=== PATIENT | male | born 1985 | race Caucasian/White ===

== ENCOUNTER 2024-11-30 12:50 | Outpatient (CLI) | payer BC, SELFPAY ==
--- OUTSIDE RECORDS SUMMARY | 2024-11-30 14:06 | XMS_ITS | Clinical Summary ---
Author Organization [facility] Address [address] [place] [address] Care Team Providers Care Agriculture Research Director Name Role Phone Angel Kerr CERTIFIED [employer]OVE[employer] ENGINE[employer] Primary Care Provider [phone] OPT 4 Kirk Iverson MD Unavailable Source Comments [facility],non-owned Affiliates and Associated Physician Practices is amultiple site organization consisting of ambulatory clinics and hospital sitesin [place], [place], [place] and [place]. This disclosure is being madepursuant to the Care Everywhere program and may not contain all information available regarding this patient. Last updated 18.[facility] Allergies Active Allergy Reactions Criticality Noted Date Comments Penicillins 09/25/2017 Sulfa Drugs 10/14/2017 Medications * Be aware that medications may not be up to date on this document. Alwaysverify current medications with the patient. Medication Sig Dispensed Refills Start Date End Date Status dexlansoprazole (DEXILANT) 60 MG capsule Take 60 mg by mouth once daily Active omeprazole (PRILOSEC) 40 MG capsule Take 40 mg by mouth daily before breakfast Active hyoscyamine 0.125 MG tablet Take 1 tablet by mouth every 4 hours as needed for Spasms 20 tablet 06/27/2018 Active Additional Information Patient not taking.Reported on 01/15/2022 venlafaxine XR 24hr (EFFEXOR XR) 150 MG capsule TAKE 1 CAPSULE WITH FOOD BY MOUTH ONCE A DAY 90 DAYS 01/12/2022 Active vitamin D, ergocalciferol, (DRISDOL) 1.25 MG (98410 UT) capsule 1 CAPSULE 1 WEEKLY ORALLY 90 DAY(S) 01/04/2022 Active pantoprazole EC (PROTONIX) 40 MG tablet TAKE 1 TABLET BY MOUTH TWICE A DAY FOR 30 DAYS 01/08/2022 Active atorvastatin (LIPITOR) 10 MG tablet TAKE 1 TABLET BY MOUTH EVERY DAY FOR 90 DAYS 11/25/2021 Active nebivolol (BYSTOLIC) 10 MG tablet TAKE 1 TABLET BY MOUTH EVERY DAY FOR 90 DAYS 11/20/2021 Active Multi Complete Take 1 capsule by mouth once daily Active azithromycin (Zithromax) 250 MG tablet Take 2 tablets on day 1, then take 1 tablet daily for 4 days 6 tablet 05/21/2023 Active Active Problems No known active problems Family History Relation Name Status Comments Brother Alive Father Alive Maternal Grandfather Maternal Grandmother Mother Alive Paternal Grandfather Paternal Grandmother Sister Alive Social History Tobacco Use Types Packs/Day Years Used Date Smoking Tobacco: Never Smokeless Tobacco: Never Tobacco Cessation:Counseling Given: No Alcohol Use Standard Drinks/Week Comments No 0 (1 standard drink = 0.6 oz pur e alcohol) Sex and Gender Information Value Date Recorded Sex Assigned at Not on file Gender Identity Not on file Sexual Orientation Not on file Last Filed Vital Signs Vital Sign Reading Time Taken Comments Blood Pressure 145/89 01/15/2022 2:53 PM CDT Pulse 96 01/15/2022 2:53 PM CDT Temperature 36.4 C (97.5 F) 01/15/2022 2:53 PM CDT Respiratory Rate 18 01/15/2022 2:53 PM CDT Oxygen Saturation 98% 01/15/2022 2:53 PM CDT Inhaled Oxygen Concentration - - Weight 152.8 kg (336 lb 12.8 oz) 01/15/2022 2:53 PM CDT Height 177.8 cm (5' 10 ) 01/15/2022 2:53 PM CDT Body Mass Index 48.33 01/15/2022 2:53 PM CDT Plan of Treatment Health Maintenance Due Date Last Done Comments HIV SCREENING 2002 HEPATITIS C SCREENING 07/12/2005 DTAP/TDAP/TD VACCINES (1 - Tdap) 2006 HEPATITIS B VACCINE (1 of 3 - 19+ 3-dose series) 2006 COVID-19 VACCINE ( - 2023-2 5 season) 2024 INFLUENZA VACCINE (#1) 2024 DEPRESSION SCREENING 09/27/2024 ZOSTER VACCINE (1 of 2) 2037 HIB VACCINE Aged Out No longer eligi ble based on patient's age to complete this topic HPV VACCINE Aged Out No longer eligi ble based on patient's age to complete this topic MENINGOCOCCAL (Group B) VACCINE Aged Out No longer eligible based on patient's age to complete this topic MENINGOCOCCAL VACCINE Aged Out No ifeoma brittany eligible based on patient's age to complete this topic PNEUMOCOCCAL VACCINE Aged Out No long er eligible based on patient's age to complete this topic Care Teams Agriculture Research Director Relationship Specialty Start Date End Date Angel Kerr, CERTIFIED [employer] ENGINE[employer]ER [phone] OPT 4 (Work) PCP - General Nurse Practitioner Family 02/13/21 Kirk Iverson MD [address] [place] [address] [place] [id number] Family Medicine 02/13/21
--- OUTSIDE RECORDS SUMMARY | 2024-11-30 14:06 | XMS_ITS | Patient Health Summary ---
Author Organization [facility] Address [address] [place] [address] Care Team Providers Care Chip Person Name Role Phone Angel Kerr HEEL SLUGGER-INSEMINATION WORKER Primary Care Provider [phone] OPT 4 Kirk Iverson MD Unavailable Note from [facility],non-owned Affiliates and Associated Physician Practices is amultiple site organization consisting of ambulatory clinics and hospital sitesin [place], [place] and [place]. This disclosure is being madepursuant to the Care Everywhere program and may not contain all information available regarding this patient. Last updated 18.[facility] Allergies * Penicillins * Sulfa Drugs Medications * Be aware that medications may not be up to date on this document. Alwaysverify current medications with the patient. * dexlansoprazole (DEXILANT) 60 MG capsule Take 60 mg by mouth once daily * omeprazole (PRILOSEC) 40 MG capsule Take 40 mg by mouth daily before breakfast * hyoscyamine 0.125 MG tablet(Started 06/27/2018) Take 1 tablet by mouth every 4 hours as needed for Spasms * venlafaxine XR 24hr (EFFEXOR XR) 150 MG capsule(Started 01/12/2022) TAKE 1 CAPSULE WITH FOOD BY MOUTH ONCE A DAY 90 DAYS * vitamin D, ergocalciferol, (DRISDOL) 1.25 MG (08995 UT) capsule(Started 01/04/2022) 1 CAPSULE 1 WEEKLY ORALLY 90 DAY(S) * pantoprazole EC (PROTONIX) 40 MG tablet(Started 01/08/2022) TAKE 1 TABLET BY MOUTH TWICE A DAY FOR 30 DAYS * atorvastatin (LIPITOR) 10 MG tablet(Started 11/25/2021) TAKE 1 TABLET BY MOUTH EVERY DAY FOR 90 DAYS * nebivolol (BYSTOLIC) 10 MG tablet(Started 11/20/2021) TAKE 1 TABLET BY MOUTH EVERY DAY FOR 90 DAYS * Multi Complete Take 1 capsule by mouth once daily * azithromycin (Zithromax) 250 MG tablet(Started 05/21/2023) Take 2 tablets on day 1, then take 1 tablet daily for 4 days Active Problems No known active problems Social History Tobacco Use Types Packs/Day Years [...] Mass Index 48.33 01/15/2022 2:53 PM CDT Procedures * LIPID PROFILE(Performed 05/12/2024) Performed for Male erectile disorder, Testosterone deficiency, Vitamin D deficiency, Hypertension, unspecified type * CBC W AUTO DIFFERENTIAL(Performed 05/12/2024) Performed for Male erectile disorder, Testosterone deficiency, Vitamin D deficiency, Hypertension, unspecified type * COMPREHENSIVE METABOLIC PANEL(Performed 05/12/2024) Performed for Male erectile disorder, Testosterone deficiency, Vitamin D deficiency, Hypertension, unspecified type * ESTRADIOL ULTRA SENSITIVE(Performed 05/12/2024) Performed for Male erectile disorder, Testosterone deficiency, Vitamin D deficiency, Hypertension, unspecified type * TESTOSTERONE FREE+TOT MALE PANEL(Performed 05/12/2024) Performed for Male erectile disorder, Testosterone deficiency, Vitamin D deficiency, Hypertension, unspecified type * VITAMIN D 25-HYDROXY(Performed 05/12/2024) Performed for Male erectile disorder, Testosterone deficiency, Vitamin D deficiency, Hypertension, unspecified type * T4 FREE(Performed 05/12/2024) Performed for Male erectile disorder, Testosterone deficiency, Vitamin D deficiency, Hypertension, unspecified type * T3 FREE(Performed 05/12/2024) Performed for Male erectile disorder, Testosterone deficiency, Vitamin D deficiency, Hypertension, unspecified type * TSH(Performed 05/12/2024) Performed for Male erectile disorder, Testosterone deficiency, Vitamin D deficiency, Hypertension, unspecified type * URINALYSIS REFLEX MICROSCOPIC REFLEX CULTURE(Performed 05/12/2024) Performed for Male erectile disorder, Testosterone deficiency, Vitamin D deficiency, Hypertension, unspecified type * MICROALB/CREAT RATIO URINE RANDOM PANEL(Performed 05/12/2024) Performed for Male erectile disorder, Testosterone deficiency, Vitamin D deficiency, Hypertension, unspecified type * PFT-LAB(Performed 06/25/2022) Performed for Dyspnea, unspecified type * HOME SLEEP STUDY(Performed 05/13/2022) Performed for Snoring * COMPREHENSIVE METABOLIC PANEL(Performed 09/10/2021) Performed for Dyspnea on exertion * LIPASE BLOOD(Performed 09/10/2021) Performed for Dyspnea on exertion * CBC W AUTO DIFFERENTIAL(Performed 09/10/2021) Performed for Dyspnea on exertion * AMYLASE BLOOD(Performed 09/10/2021) Performed for Dyspnea on exertion * TROPONIN I(Performed 09/10/2021) Performed for Dyspnea on exertion * TESTOSTERONE TOTAL MALE(Performed 08/06/2021) Performed for Erectile dysfunction, unspecified erectile dysfunction type * COMPREHENSIVE METABOLIC PANEL(Performed 07/18/2018) Performed for Elevated LFTs * TSH(Performed 06/27/2018) Performed for Diarrhea, unspecified type, Abdominal pain, generalized * CBC W AUTO DIFFERENTIAL(Performed 06/27/2018) Performed for Diarrhea, unspecified type, Abdominal pain, generalized * COMPREHENSIVE METABOLIC PANEL(Performed 06/27/2018) Performed for Diarrhea, unspecified type, Abdominal pain, generalized * URINALYSIS AUTO - POINT OF CARE (AMB) SMGS(Performed 06/27/2018) Performed for Diarrhea, unspecified type, Abdominal pain, generalized * CULTURE STOOL PANEL(Performed 06/27/2018) Performed for Diarrhea, unspecified type, Abdominal pain, generalized * SKIN TEST PPD - POINT OF CARE(Performed 06/14/2018) Performed for Health examination of defined subpopulation * CARDIAC RHYTHM STRIP ORDER(Performed 11/03/2017) * ESOPHAGOGASTRODUODENOSCOPY (EGD) DIAGNOSTIC(Performed 11/03/2017) Performed for Gastroesophageal reflux disease, esophagitis presence not specified * CARDIAC RHYTHM STRIP ORDER(Performed 10/26/2017) * ESOPHAGOGASTRODUODENOSCOPY (EGD) DIAGNOSTIC(Performed 10/15/2017) Performed for Gastroesophageal reflux disease, esophagitis presence not specified * ED LACERATION REPAIR(Performed 10/07/2017) * FL ESOPHAGUS W UGI AIR CONTRAST(Performed 06/24/2017) Performed for Gastroesophageal reflux disease, esophagitis presence not specified * XR ANKLE LEFT 3VW OR MORE(Performed 07/16/2015) Performed for Arthralgia of left ankle Results * (ABNORMAL) URINALYSIS REFLEX MICROSCOPIC REFLEX CULTURE (05/12/2024 8:01 AM [facility]) Color UA Yellow Straw, Yellow, Dark Yellow 05/12/2024 9:02 AM [facility] Clarity UA Clear Clear 05/12/2024 9:02 AM [facility] Glucose UA Negative Negative 05/12/2024 9:02 AM [facility] Bilirubin UA Negative Negative 05/12/2024 9:02 AM [facility] Ketone UA Negative Negative 05/12/2024 9:02 AM [facility] Specific [place] UA 1.025 1.005 - 1.030 05/12/2024 9:02 AM [facility] Blood UA Negative Negative 05/12/2024 9:02 AM [facility] pH UA 6.0 5.0 - 8.0 pH 05/12/2024 9:02 AM [facility] Protein UA Negative Negative 05/12/2024 9:02 AM [facility] Urobilinogen UA 4.0(A) Negative, >8.0 mg/dL 05/12/2024 9:02 AM [facility] Nitrite UA Negative Negative 05/12/2024 9:02 AM [facility] Leukocyte UA Negative Negative 05/12/2024 9:02 AM [facility] Urine Microscopy Urine microscopy not indicated 05/12/2024 9:02 AM [facility] Reflex Status Culture not indicated 05/12/2024 9:02 AM [facility] Urine URINE SPECIMEN OBTAINED BY CLEAN CATCH PROCEDURE / Unknown Collection / Unknown 05/12/2024 8:01 AM CDT 05/12/2024 8:42 AM CDT Narrative [facility] - 05/12/2024 9:02 AM CDT Angel Winston Usha [facility] - URINALYSI S ORDERABLES Performing Organization Address [facility] de Phone Number [facility] [address] * (ABNORMAL) ESTRADIOL ULTRA SENSITIVE (05/12/2024 8:01 AM CDT) [facility] Estradiol Ultrasensitive 113.9(H) 10.0 - 42.0 pg/mL 05/17/2024 4:44 PM CDT [facility] ([facility]) Comment: REFERENCE INTERVAL: Estradiol by Signals Intelligence Analysis Manager Pre-menopausal: Early follicular 30.0-100.0 pg/mL Pre-menopausal: Late follicular 100.0-400.0 pg/mL Pre-menopausal: Luteal 50.0-150.0 pg/mL Post-menopausal 2.0-21.0 pg/mL REFERENCE INTERVAL: Estradiol by Signals Intelligence Analysis Manager For a complete set of all established reference intervals, refer to [employer]/Tests/Pub/[id number]. This test was developed and its performance characteristics determined by [facility]. It has not been cleared or approved by the [place] Food and Drug Administration. This test was performed in a CLIA certified laboratory and is intended for clinical purposes. Performed By: [facility] [address] [address] Nipple Machine Operator: Janes Chahal MD, PhD CLIA Number: [id number] Blood BLOOD SPECIMEN / Unknown Lab Venipuncture / Unknown 05/12/2024 8:01 AM CDT 05/12/2024 8:42 AM CDT Angel Winston Usha [facility] - CHEMISTRY ORDERABLES [facility]) [address] [place] [address] * MICROALB/CREAT RATIO URINE RANDOM PANEL (05/12/2024 8:01 AM CDT) Creatinine Urine 286.8 mg/dL 05/12/20 9:42 AM CDT [facility] Microalbumin Urine 2.0 mg/dL 05/12/2024 9:42 AM CDT [facility] Microalbumin/Crea tinine Ratio 6 Normal: <30 mg/g, Microalbum inuria: 30-299 mg/g, Macroalbum inuria: >=300 mg/g mg/g 05/12/2024 9:42 AM CDT [facility] Urine URINE SPECIMEN OBTAINED BY CLEAN CATCH PROCEDURE / Unknown Collection / Unknown 05/12/2024 8:01 AM CDT 05/12/2024 8:41 AM CDT Angel Kerr [facility] - URINE MICHAEL MARY ORDERABLES Performing Organization Address [facility]/ZIP Co de Phone Number [facility] [address] [place] [address] * T3 FREE (05/12/2024 8:01 AM CDT) T3 Free 3.8 2.5 - 4.3 pg/mL 05/15/2024 12:18 AM CDT [facility] ([facility]) Comment: REFERENCE INTERVAL: Triiodothyronine, Free (Free T3) Access complete set of age- and/or gender-specific reference intervals for this test in the [facility] Test Directory ([employer]). Performed By: [facility] [address] [place] [address] Nipple Machine Operator: Janes Chahal MD, PhD CLIA Number: [id number] Blood BLOOD SPECIMEN / Unknown Lab Venipuncture / Unknown 05/12/2024 8:01 AM CDT 05/12/2024 8:41 AM CDT Angel Kerr [facility] - CHEMISTRY ORDERABLES Performing Organization Address [facility]/ZIP Co de Phone Number [facility]) [address] [place] [address] * VITAMIN D 25-HYDROXY (performed in house) (05/12/2024 8:01 AM CDT) Vitamin D, 25 Hydroxy 45.1 30 - 80 ng/mL 05/12/2024 9:54 AM CDT [facility] Blood BLOOD SPECIMEN / Unknown Lab Venipuncture / Unknown 05/12/2024 8:01 AM CDT 05/12/2024 8:41 AM CDT Narrative [facility] - 05/12/2024 9:54 AM CDT Reference Values: The recommendation for 25-Hydroxy Vitamin D clinical decision points are as follows: Deficient < 20.0 ng/mL Insufficient 20.0-29.9 ng/mL Sufficient 30.0-100.0 ng/mL Potential Toxicity >100 ng/mL Reference: The Endocrine Society Clinical Practice Guidelines. 2011 If the 25-Hydroxy Vitamin D results are inconsistent with clinical evidence, it is recommended that follow-up testing using a method such as LC-MS/MS be performed to confirm the result. Angel Kerr HEEL SLUGGER-INSEMINATION WORKER LAB - CHEMISTRY ORDERABLES Performing Organization Address City/State/[facility] Co de Phone Number [facility] [address] * (ABNORMAL) TESTOSTERONE FREE+TOT MALE PANEL (05/12/2024 8:01 AM CDT) Testosterone Adult Male 762 300 - 1080 ng/dL 05/15/2024 12:30 AM CDT [facility] ([facility]) Comment: INTERPRETIVE INFORMATION: Testosterone by Immunoassay Testosterone immunoassays are both imprecise and inaccurate at low testosterone concentrations, such as those found in children and cisgender females. For these individuals, testing by mass spectrometry is recommended; refer to Testosterone (Adult Females, Children, or Individuals on Testosterone-Suppressing Hormone Therapy) ([facility] test code 9733183). Free or bioavailable testosterone measurements may provide supportive information. For individuals on testosterone hormone therapy, refer to cisgender male reference intervals. No reference intervals have been established for males younger than 14 years or for cisgender females. For a complete set of all established reference intervals, refer to [employer]/Tests/Pub/[id number]. Sex Hormone Binding Globulin 7(L) 17 - 56 nmol/L 05/15/2024 12:30 AM CDT [facility] ([facility]) Comment: REFERENCE INTERVAL: Sex Hormone Binding Globulin Access complete set of age- and/or gender-specific reference intervals for this test in the [facility] Test Directory ([employer]). Testosterone Free 240 47 - 244 pg/mL 05/15/2024 12:30 AM CDT [facility] ([facility]) Comment: INTERPRETIVE INFORMATION: Testosterone, Free Calculation Free testosterone concentration is calculated using total testosterone (measured by immunoassay) and the binding constant of testosterone and sex hormone-binding globulin (SHBG). Testosterone immunoassays are both imprecise and inaccurate at low testosterone concentrations, such as those found in children and cisgender females. For these individuals, testing by mass spectrometry is recommended; refer to Testosterone, Free (Adult Females, Children, or Individuals on Testosterone-Suppressing Hormone Therapy) ([employer] test code 3351055). For individuals on testosterone hormone therapy, refer to cisgender male reference intervals. No reference intervals have been established for males younger than 14 years or for cisgender females. For a complete set of all established reference intervals, refer to [employer]/Tests/Pub/3932532. Testosterone % Free 3.2(H) 1.6 - 2.9 % 05/15/2024 12:30 AM CDT [facility] ([facility]) Comment: Performed By: [facility] [address] [place] [address] Nipple Machine Operator: Janes Chahal MD, PhD CLIA Number: [id number] Blood BLOOD SPECIMEN / Unknown Lab Venipuncture / Unknown 05/12/2024 8:01 AM CDT 05/12/2024 8:42 AM CDT Angel Kerr HEEL SLUGGER-INSEMINATION WORKER LAB - CHEMISTRY ORDERABLES [facility]) [address] * CBC W/ DIFFERENTIAL (05/12/2024 8:01 AM CDT) Only the most recent of3 resultswithin the time period is included. WBC 6.4 4.0 - 10.7 x10E9/L 05/12/2024 8:57 AM [facility] RBC Count 5.34 4.30 - 5.80 x10E12/L 05/12/2024 8:57 AM [facility] Hemoglobin 15.9 13.3 - 17.5 g/dL 05/12/2024 8:57 AM [facility] Hematocrit 47.6 38.7 - 51.1 % 05/12/2024 8:57 AM [facility] MCV 89.1 80.0 - 98.0 fL 05/12/2024 8:57 AM [facility] MCH 29.8 26.7 - 33.6 pg 05/12/2024 8:57 AM [facility] MCHC 33.4 31.7 - 36.3 g/dL 05/12/2024 8:57 AM [facility] RDW-CV 13.2 11.3 - 14.8 % 05/12/2024 8:57 AM [facility] Platelet Count 181 150 - 420 x10E9/L 05/12/2024 8:57 AM [facility] MPV 9.9 7.8 - 11.4 fL 05/12/2024 8:57 AM [facility] Neutrophil % 60.3 41.0 - 74.0 % 05/12/2024 8:57 AM [facility] Lymphocyte % 28.5 17.0 - 47.0 % 05/12/2024 8:57 AM [facility] Monocyte % 8.9 3.0 - 11.0 % 05/12/2024 8:57 AM [facility] Eosinophil % 1.6 0.0 - 7.0 % 05/12/2024 8:57 AM [facility] Basophil % 0.5 0.0 - 1.6 % 05/12/2024 8:57 AM [facility] Immature Granulocytes % 0.2 0.0 - 1.0 % 05/12/2024 8:57 AM [facility] Neutrophil Absolute 3.88 1.60 - 7.50 x10E9/L 05/12/2024 8:57 AM [facility] Lymphocyte Absolute 1.83 1.00 - 4.40 x10E9/L 05/12/2024 8:57 AM [facility] Monocyte Absolute 0.57 0.15 - 1.00 x10E9/L 05/12/2024 8:57 AM CDT [facility] Eosinophil Absolute 0.10 0.00 - 0.60 x10E9/L 05/12/2024 8:57 AM CDT [facility] Basophil Absolute 0.03 0.00 - 0.13 x10E9/L 05/12/2024 8:57 AM CDT [facility] Blood BLOOD SPECIMEN / Unknown Lab Venipuncture / Unknown 05/12/2024 8:01 AM CDT 05/12/2024 8:42 AM CDT Angel Kerr HEEL SLUGGER-INSEMINATION WORKER LAB - HEMATOLOG Y ORDERABLES Performing Organization Address City/State/[facility] Co de Phone Number [facility] [address] * (ABNORMAL) COMPREHENSIVE METABOLIC PANEL (05/12/2024 8:01 AM CDT) Only the most recent of4 resultswithin the time period is included. Glucose 95 70 - 125 mg/dL 05/12/2024 3:34 PM T [facility] Sodium 139 136 - 145 mmol/L 05/12/2024 3:34 PM T [facility] Potassium 3.9 3.4 - 5.1 mmol/L 05/12/2024 3:34 PM T [facility] Chloride 107 98 - 107 mmol/L 05/12/2024 3:34 PM T [facility] CO2 26 22 - 29 mmol/L 05/12/2024 3:34 PM [facility] Calcium 9.10 8.4 - 10.2 mg/dL 05/12/2024 3:34 PM [facility] Anion Gap 6 6 - 16 mmol/L 05/12/2024 3:34 PM T [facility] BUN 11.7 8.4 - 25.7 mg/dL 05/12/2024 3:34 PM T [facility] Creatinine 1.04 0.72 - 1.25 mg/dL 05/12/2024 3:34 PM T [facility] Alkaline Phosphatase 43 40 - 150 U/L 05/12/2024 3:34 PM T [facility] ALT 27 <=55 U/L 05/12/2024 3:34 PM CDT [facility] AST 19 5 - 34 U/L 05/12/2024 3:34 PM CDT [facility] Protein Total 6.4 6.4 - 8.3 gm/dL 05/12/2024 3:34 PM CDT [facility] Albumin 4.0 3.4 - 4.8 gm/dL 05/12/2024 3:34 PM CDT [facility] Globulin Total 2.4(L) 2.6 - 4.0 gm/dL 05/12/2024 3:34 PM CDT [facility] Albumin/Globulin Ratio 1.7(H) 0.9 - 1.6 05/12/2024 3:34 PM CDT [facility] Bilirubin Total 1.0 0.2 - 1.2 mg/dL 05/12/2024 3:34 PM CDT [facility] eGFR >90 >90 mL/min/1.7 3m2 05/12/2024 3:34 PM CDT [facility] Comment:The GFR result was c alculated using the updated CKD-EPI Creatinine Equation (2020). Blood BLOOD SPECIMEN / Unknown Lab Venipuncture / Unknown 05/12/2024 8:01 AM CDT 05/12/2024 8:42 AM CDT [facility] - CHEMISTRY ORDERABLES Performing Organization Address [facility] Co de Phone Number [facility] [address] * TSH (05/12/2024 8:01 AM CDT) Only the most recent of2 resultswithin the time period is included. TSH 1.0104 0.35 - 4.94 uIU/mL 05/12/2024 3:34 PM CDT [facility] Blood BLOOD SPECIMEN / Unknown Lab Venipuncture / Unknown 05/12/2024 8:01 AM CDT 05/12/2024 8:42 AM CDT Angel Kerr [facility] - CHEMISTRY ORDERABLES Performing Organization Address City/[facility] Co de Phone Number [facility] [address] * T4 FREE (05/12/2024 8:01 AM CDT) T4 Free 0.97 0.70 - 1.48 ng/dL 05/12/2024 3:34 PM CDT [facility] Blood BLOOD SPECIMEN / Unknown Lab Venipuncture / Unknown 05/12/2024 8:01 AM CDT 05/12/2024 8:42 AM CDT Angel Kerr HEEL SLUGGER-INSEMINATION WORKER LAB - CHEMISTRY ORDERABLES [facility] [address] * (ABNORMAL) LIPID PROFILE (05/12/2024 8:01 AM CDT) Pathologist [facility] Cholesterol 85 <200 mg/dL 05/12/2024 3:59 PM CDT [facility] Triglycerides 72 <150 mg/dL 05/12/2024 3:59 PM CDT [facility] HDL Cholesterol 28(L) >40 mg/dL 4 3:59 PM CDT [facility] Chol HDL Ratio 3.0 1.0 - 6.0 05/12/2024 3:59 PM CDT [facility] LDL Calculated 43(L) 65 - 130 mg/dL 05/12/2024 3:59 PM CDT [facility] VLDL Calculated 14 <=30 mg/dL 4 3:59 PM CDT [facility] Blood BLOOD SPECIMEN / Unknown Lab Venipuncture / Unknown 05/12/2024 8:01 AM CDT 05/12/2024 8:42 AM CDT Narrative [facility] - 05/12/2024 3:59 PM CDT Lipid Profile Comment: CHOLESTEROL LEVEL..................CLINICAL INTERPRETATION LESS THAN 200 MG/DL..............................DESIRABLE 200-239 MG/DL..............................BORDERLINE HIGH GREATER THAN 240 MG/DL................................HIGH LDL-CHOLESTEROL LEVEL..............CLINICAL INTERPRETATION LESS THAN 100 MG/DL................................OPTIMAL 100-129 MG/DL.................................NEAR OPTIMAL GREATER THAN 160 MG/DL...........................HIGH RISK HDL RISK LEVEL GREATER THEN 60 MG/DL............................DECREASED 40-60 MG/DL........................................AVERAGE LESS THAN 40 MG/DL...............................INCREASED TRIGLYCERIDE LEVEL..................CLINICAL INTERPRETATION LESS THAN 150 MG/DL...............................DESIRABLE 150-199 MG/DL...............................BORDERLINE HIGH 200-499 MG/DL..........................................HIGH GREATER THAN 500..................................VERY HIGH THE NATIONAL CHOLESTEROL EDUCATION PROGRAM HAS SET THE ABOVE GUIDELINES (REFERANCE VALUES) FOR CHOLESTEROL AND HDL. RISK ASSOCIATED WITH CHOLESTEROL/HDL RATIOS RISK....................MALE RATIO.............FEMALE RATIO 1/2 AVERAGE.................<3.4.......................<3.3 LOW RISK.................... 4.0 ...................... 3.8 AVERAGE..................... 5.0 ...................... 4.5 2X AVERAGE.................. 9.5 ...................... 7.0 3X AVERAGE...................>23........................>11 Angel Kerr HEEL SLUGGER-INSEMINATION WORKER LAB - CHEMISTRY ORDERABLES Performing Organization Address City/State/[facility] Co de Phone Number [facility] [address] * COMPLETE PFT (06/25/2022 12:00 PM CDT) 06/25/2022 12:0 0 PM CDT Narrative Procedure Note Cholo Diamond MD - 06/25/2022 11:59 PM CDT [facility] Pulmonary Function Study Patient:ESTEBAN GARCIA CPatient Type: CSN:[id number]/Age:12 1985 36 Stn/Rm/Bed:SMCRT Sex/Race:M Unit #:[id number] Adrs:[id number] [facility] Prim Phys: Attend Phys:ANGEL KERRCity/St/Zip:[place] [address] Admit Date:June 25isch To: Disch Date: DATE TEST PERFORMED: 06/25/2022 PHYSICIAN INTERPRETATION: This test revealed FEV1 88% of the predictable. FEF25/75 is 80% to 144% of the predictable. All are showing not muchimprovement from bronchodilator therapy. Residual volume 110% of the predictable. DLCO, diffusion lung capacity 106% of the predictable. CONCLUSION: Assessment and findings suggestive of very minimal mild smallbronchial spasm along with restrictive lung disease, probably due tounderlying old rate. Cholo Diamond M.D. RS/MODL /[id number] cc: Amparo Vega M.D.PULMONARY FUNCTION STUDY Angel Kerr HEEL SLUGGER-INSEMINATION WORKER RESPIRATORY [facility] ORDERABLES [facility] * HOME SLEEP STUDY (05/13/2022 11:59 PM CDT) Narrative Татьяна Puente DO - 05/13/2022 11:59 PM CDT Татьяна Puente DO 07/09/2022 10:03 AM HOME SLEEP STUDY REPORT [place], [place] Patient Information: Name: Esteban Garcia Date of : 1985 Age: [age] year old Gender: Male Weight: 336 lb BMI: 48 Ordered by: Angel Kerr Date of Study: 05/11/22 Clinical Note & Conditions of Recording: Home sleep test was performed on this 36 year old male. A home sleep study was performed using [employer] home study device, where air flow, oxygen saturation, snoring, and abdominal and chest respiratory movements, heart rate, and body position were simultaneously recorded. Scoring was performed in accordance with [place] [employer] guidelines. Summary of Sleep Parameters: Total Recording Time: 7 hours 14 minutes Nasal airflow recording time: 5 hours 23 minutes Oxygen saturation recording time: 7 hours 2 minutes Respiratory Summary: Obstructive Apnea: 246 Central Apnea: 0 Mixed Apnea: 1 Hypopnea: 286 Apnea Hypopnea Index (AHI): Any 9 events per hour Respiratory events by Position: Supine 70% of time with supine AHI 108 events per hour Oximetry Analysis: Baseline O2 (average value during sleep): 87% Lowest SaO2 during sleep: 62% Fractional breakdowns during sleep: 3 hours 41 minutes spent with oxygen saturations less or equal to 88% Cedrick Higgins Respiration was not seen. Cardiac Summary: Average pulse rate (BPM): 80 Range: 40-114 SUMMARY: AHI: 99 events per hour O2 [place]: 62% 3 hours 41 minutes spent with oxygen saturations less than or equal to 88% Impression: This home sleep study was performed this 36 year old patient. This study was technically adequate. The findings indicate very severe obstructive sleep apnea and hypoxemia. The baseline AHI (apnea/hypopnea index) for this record was 99 events/hr. The oxygen [place] was 62 %. Recommendations: Treatment with PAP therapy is recommended at this time. Patient should be advised to defer driving when sleepy. I have conducted an epoch by epoch review of the entire raw data. Татьяна Puente DO, FAASM, FAAP [address] [address] Angel Kerr [facility] OR DERABLES * TROPONIN I (09/10/2021 9:43 AM SENIOR CLINICAL RESEARCH SCIENTIST) Troponin I <0.012 <0.032 ng/mL 09/10/2021 11:05 AM [facility] Blood BLOOD SPECIMEN / Unknown Lab Venipuncture / Unknown 09/10/2021 9:43 AM SENIOR CLINICAL RESEARCH SCIENTIST 09/10/2021 10:18 AM [facility] Narrative [facility] - 09/10/2021 11:05 AM [facility] The universal definition of myocardial infarction (CT) being at least one value above the 99th percentile of the upper reference limit (0.028 ng/mL combined male/female), along with evidence of CT with at least one of the following: Ischemic symptoms, pathological Q waves on electrocardiogram (ECG), ischemic ECG changes or imaging evidence of new loss of viable myocardium or new regional wall motion abnormality. An elevated TNI value alone is not sufficient to make a the diagnosis of CT, serial sampling is recommended to detect the temporal rise and fall of troponin levels characteristic of CT. Any condition resulting in myocardial cell damage can increase cardiac TNI levels. In addition to CT, these include but are not limited to congestive heart failure, arrhythmia, myocarditis and non-cardiac related causes such as pulmonary embolism, renal failure and sepsis. Angel Kerr [facility] - CHEMISTRY ORDERABLES Performing Organization Address [facility] Co de Phone Number [facility] [address] [place] [address] * LIPASE BLOOD (09/10/2021 9:43 AM SENIOR CLINICAL RESEARCH SCIENTIST) [facility] Lipase 22 8 - 78 U/L 09/10/2021 11:13 AM SENIOR CLINICAL RESEARCH SCIENTIST [facility] Blood BLOOD SPECIMEN / Unknown Lab Venipuncture / Unknown 09/10/2021 9:43 AM SENIOR CLINICAL RESEARCH SCIENTIST 09/10/2021 10:17 AM SENIOR CLINICAL RESEARCH SCIENTIST Angel Kerr [facility] - CHEMISTRY ORDERABLES Performing Organization Address [facility] Phone Number [facility] [address] [place] [address] * AMYLASE BLOOD (09/10/2021 9:43 AM SENIOR CLINICAL RESEARCH SCIENTIST) [facility] Amylase 39 25 - 125 U/L 09/10/2021 10:52 AM SENIOR CLINICAL RESEARCH SCIENTIST [facility] Blood BLOOD SPECIMEN / Unknown Lab Venipuncture / Unknown 09/10/2021 9:43 AM SENIOR CLINICAL RESEARCH SCIENTIST 09/10/2021 10:17 AM SENIOR CLINICAL RESEARCH SCIENTIST Angel Kerr [facility] - CHEMISTRY ORDERABLES Performing Organization Address [facility] de Phone Number [address] * (ABNORMAL) TESTOSTERONE TOTAL MALE (08/06/2021 7:10 AM SENIOR CLINICAL RESEARCH SCIENTIST) [facility] Testosterone Adult Male 154(L) 300 - 1080 ng/dL 08/08/2021 6:57 AM SENIOR CLINICAL RESEARCH SCIENTIST [employer] ([facility]) Comment: Total testosterone values may not reflect optimal concentrations in all individuals. Free or bioavailable testosterone measurements may provide supportive information. REFERENCE INTERVAL: Testosterone, Adult Male Access complete set of age- and/or gender-specific reference intervals for this test in the [facility] Test Directory ([employer]). Performed By: [facility] [employer] [address] [place] [address] Nipple Machine Operator: Rosaline Schultz MD Blood BLOOD SPECIMEN / Unknown Lab Venipuncture / Unknown 08/06/2021 7:10 AM SENIOR CLINICAL RESEARCH SCIENTIST 08/06/2021 7:38 AM SENIOR CLINICAL RESEARCH SCIENTIST Angel Kerr HEEL [facility]ATION WORK[facility] LAB - CHEMISTRY ORDERABLES [facility] [employer] ([facility]) [address] [place] [address], [facility] * (ABNORMAL) URINALYSIS AUTO - POINT OF CARE (AMB) SMGS (06/27/2018) Clarity UA POCT clear Color UA POCT yellow Glucose UA Negative Negative Bilirubin UA POCT Negative Negative Ketone UA Negative Negative Specific [place] UA POCT 1.020 1.002 - 1.030 Blood UA POCT Negative Negative pH UA 7.5 5.0 - 8.0 pH units Protein UA POCT 30.(A) Negative Urobilinogen UA 0.2 0.1 - 1.0 Nitrite UA POCT Negative Negative Leukocyte UA Negative Negative QC Verified Yes Yes Urine URINE / Unknown 06/27/2018 Sheron Cook PA-C LAB - POINT OF CARE ORDERABLES * CULTURE STOOL PANEL (06/27/2018 12:00 AM CDT) Culture No Salmonella, Shigella, or Campylobacter isolated DION 06/30/2018 6:49 AM CDT [facility] Culture Growth of normal enteric danyell DION 06/30/2018 6:49 AM CDT [facility] Stool STOOL SPECIMEN / Unknown Collection / Unknown 06/27/2018 06/27/2018 8:33 PM CDT Sheron Cook PA-C LAB - MICROBIOLOGY O RDERABLES [facility] [address] * SKIN TEST PPD - POINT OF CARE (06/14/2018) PPD 0 Comment:neg Other MISCELLANEOUS SAMPLE S / Unknown 06/14/2018 Marry Buck [facility]SE[facility]ATION WORKER LAB - POINT OF C ARE ORDERABLES * CARDIAC RHYTHM STRIP ORDER (11/03/2017 12:51 PM SENIOR CLINICAL RESEARCH SCIENTIST) Only the most recent of2 resultswithin the time period is included. Narrative 11/03/2017 12:51 PM SENIOR CLINICAL RESEARCH SCIENTIST Ordered by an unspecified provider. Scanned Document CARDIAC SERVICES ORD ERABLES * ED LACERATION REPAIR (10/07/2017 5:20 PM SENIOR CLINICAL RESEARCH SCIENTIST) Narrative Ashanti Kim MD - 10/07/2017 5:20 PM SENIOR CLINICAL RESEARCH SCIENTIST Ashanti Kim MD 10/07/2017 5:20 PM Laceration Repair Date/Time: 09/25/2017 1:45 PM Performed by: ASHANTI KIM Authorized by: ASHANTI KIM Consent: Verbal consent obtained. Written consent obtained. Consent given by: patient Patient understanding: patient states understanding of the procedure being performed Patient consent: the patient's understanding of the procedure matches consent given Procedure consent: procedure consent matches procedure scheduled Relevant documents: relevant documents present and verified Test results: test results available and properly labeled Site marked: the operative site was marked Imaging studies: imaging studies available Required items: required blood products, implants, devices, and special equipment available Patient identity confirmed: verbally with patient Time out: Immediately prior to procedure a time out was called to verify the correct patient, procedure, equipment, desktop support associate and site/side marked as required. Body area: upper extremity Location details: left hand Foreign bodies: no foreign bodies Anesthesia: local infiltration Anesthesia: Local Anesthetic: lidocaine 1% without epinephrine Preparation: Patient was prepped and draped in the usual sterile fashion. Irrigation solution: tap water Irrigation method: syringe Amount of cleaning: standard Number of sutures: 8 Patient tolerance: Patient tolerated the procedure well with no immediate complications Ashanti Kim MD PROCEDURE/MINOR SURG ICAL ORDERABLES * FL UPPER GI AIR W ESOPH [id number] (06/24/2017 9:38 AM CDT) Anatomical Region Laterality Modality Radio Fluoroscop y 06/24/2017 10:0 7 AM CDT Narrative 06/24/2017 10:28 AM CDT PROCEDURE: FL ESOPHAGUS W UGI AIR CONTRAST 06/24/2017 10:07 AM HISTORY: Gastro-esophageal reflux disease without esophagitis. FINDINGS AND IMPRESSION: COMPARISON: None. FLUOROSCOPY: 3.6 minutes fluoroscopy time. 59 fluoroscopy images. Air contrast UGI examination was performed. Normal esophageal motility. Small sliding hiatal hernia. Mild gastroesophageal reflux. Stomach, duodenal bulb, duodenal sweep, and proximal small bowel are normal. No evidence of tumor, filling defect, stricture, obstruction or active peptic ulcer disease. Edited by Shelly Chris on 06/24/2017 10:14 AM Procedure Note Kasia Rich MD - 06/24/2017 PROCEDURE: FL ESOPHAGUS W UGI AIR CONTRAST 06/24/2017 10:07 AM HISTORY: Gastro-esophageal reflux disease without esophagitis. FINDINGS AND IMPRESSION: COMPARISON: None. FLUOROSCOPY: 3.6 minutes fluoroscopy time. 59 fluoroscopy images. Air contrast UGI examination was performed. Normal esophageal motility. Small sliding hiatal hernia. Mild gastroesophageal reflux. Stomach, duodenal bulb, duodenal sweep, and proximal small bowel are normal. No evidence of tumor, filling defect, stricture, obstruction or active peptic ulcer disease. Edited by Shelly Chris on 06/24/2017 10:14 AM Kirk Iverson MD FLUOROSCOPY ORDERABL ES * XR ANKLE 3+ VW LEFT (07/16/2015 3:16 PM CDT) Anatomical Region Laterality Modality Lower Extremity Radiographic Adamaris ging 07/16/2015 3:30 PM CDT Impressions 07/16/2015 4:52 PM CDT No acute fracture. Narrative 07/16/2015 4:52 PM CDT LEFT ANKLE 3 VIEWS 07/16/2015 HISTORY: Rolled ankle. Pain. FINDINGS: Three views left ankle confirm no fracture. Soft tissue swelling. The alignment is anatomic. Procedure Note Grant Baker MD - 07/16/2015 LEFT ANKLE 3 VIEWS 07/16/2015 HISTORY: Rolled ankle. Pain. FINDINGS: Three views left ankle confirm no fracture. Soft tissue swelling. The alignment is anatomic. IMPRESSION No acute fracture. Marisela Reyes APRN-INSEMINATION WORKER DIAGNOSTIC IMAG ING ORDERABLES Care Teams Chip Person Relationship Specialty Start Date End Date Angel Kerr, NIKOLE-INSEMINATION WORKER [phone] OPT 4 (Work) PCP - General Nurse Practitioner Family 02/13/21 Kirk Iverson MD [address] [place] [id number] Family Medicine 02/13/21
--- OUTSIDE RECORDS SUMMARY | 2024-11-30 14:06 | XMS_ITS | Referral Summary ---
Author Organization [facility] Address [address] [place] [address] Care Team Providers Care Melt Helper Name Role Phone Angel Kerr UNIT MANAGER [employer]ENCE STORES-MANAGER ONCOLOGY Primary Care Provider [phone] OPT 4 Kirk Iverson MD Unavailable [phone] Source Comments [facility],non-owned Affiliates and Associated Physician Practices is amultiple site organization consisting of ambulatory clinics and hospital sitesin [place], [place], [place] and [place]. This disclosure is being madepursuant to the Care Everywhere program and may not contain all information available regarding this patient. Last updated 18.[facility] Allergies Active Allergy Reactions Criticality Noted Date [...] Active vitamin D, ergocalciferol, (DRISDOL) 1.25 MG (21391 UT) capsule 1 CAPSULE 1 WEEKLY ORALLY [...] Active Active Problems No known active problems Social [...] Mass Index 48.33 01/15/2022 2:53 PM CDT Functional Status Functional Status Response Date of Assess ment Is person deaf or have serious hearing difficult y? No 11/03/2017 Is person blind or have serious difficulty seein g? No 11/03/2017 Does person have serious dif ficulty walking/climbing stairs? No 11/03/2017 Does person have difficulty dressing/bathing? No 11/03/2017 Does person have difficulty doing errands alone? No 11/03/2017 Cognitive Status Response Date of Assessm ent Does person have difficulty concentrating/remembering/making decisions? No 11/03/2017 Plan of Treatment Not on file Administered Medications Care Teams Melt Helper Relationship Specialty Start Date End Date Angel Kerr APRN-MANAGER ONCOLOGY [phone] OPT 4 (Work) PCP - General Nurse Practitioner Family 02/13/21 Kirk Iverson MD [facility] [place] [address] [facility] 02/13/21
--- NOTE | 2024-11-30 15:00 | NEURO_ITS ---
Clinical note: Patient is 39-year-old with history of paresthesias in both upper limbs. The patient has had surgery for carpal tunnel syndrome in the past. Previous study done by this electromyographer in 2019 was available for comparison. There is no history of diabetes mellitus or any recent major trauma. On a brief neurologic examination no focal muscle wasting or fasciculations were seen in both upper limbs. Results of the study are given below. Summary of findings: 1. Left and right median palmar and digital sensory distal latencies were borderline prolonged on the right and normal on the left side. Amplitudes and conduction velocity were within normal limits. Left and right ulnar digital sensory distal latency and conduction velocities and amplitudes within normal limits. However right ulnar palmar sensory amplitude is decreased most likely due to adiposity at the wrist since the digital sensory amplitude was within normal limits. Left ulnar palmar sensory distal latency and amplitude within normal limits. Bilateral radial sensory distal latencies amplitudes within normal limits. 2. Left and right median motor distal latencies and amplitudes and conduction velocity within normal limits. 3. Left and right ulnar motor distal latencies amplitudes and conduction velocities were within acceptable normal limits . No focal slowing was seen across the elbow. However, left and right ulnar motor inching studies are performed across the elbow which show mild focal slowing across the elbow 4. Left and right median and ulnar motor distal latencies while recording over 2nd lumbrical and 2nd interossei muscles were comparable. 5. EMG examination performed were a monopolar needle electrode was utilized. Mild decreased recruitment was noted in the right triceps but no denervation changes were some seen in other C6-7 muscles on the right side. Motor unit amplitude, duration and recruitment essentially within acceptable normal limits Impression : 1. EMG nerve can study of the upper limbs show overall findings were essentially within acceptable normal limits. However, right median and digital sensory distal latencies were minimally prolonged. When compared to previous study done by this physician on 08/22/2019, median digital sensory distal latency was mildly prolonged compared to previous study however overall findings borderline and should be clinically correlated particularly in view of the previous surgery for carpal tunnel syndrome. Nerve conduction study findings in the left upper limb were within acceptable normal limits. 2. Mild decreased recruitment was noted in the right triceps however no changes were seen in other C6-7 distribution. Possibility of a mild chronic right C6-7 radiculopathy may however be considered and if clinically relevant a radiographic correlation may be helpful. 3. 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 However no denervation changes were seen in ulnar nerve distribution forearm or hand. Clinical correlation is recommended. Christopher Harrington MD, FAAN, FAANEM Neurologist Nerve Conduction Studies Motor Nerve Results ? Latency Amplitude F-Lat Segment Distance CV Comment Site (ms) (mV) (ms) (cm) (m/s) Left Med/Ulnar(Lum-INT) Motor ? Median (Lumb I) Wrist 3.0 5.0 ? Ulnar (Dorsal Interossei IV) Wrist 3.6 7.3 Right Med/Ulnar(Lum-INT) Motor ? Median (Lumb I) Wrist 3.6 3.0 ? Ulnar (Dorsal Interossei IV) Wrist 3.3 4.0 Left Median (APB) Motor Wrist 4.1 6.1 Elbow 8.8 6.2 Elbow-Wrist 265 56 Right Median (APB) Motor Wrist 4.1 8.8 Elbow 8.0 8.2 Elbow-Wrist 220 56 Left Ulnar (ADM) Motor Wrist 2.9 9.2 Bel Elbow 6.5 8.4 Bel Elbow-Wrist 210 58 Abv Elbow 7.7 8.3 Abv Elbow-Bel Elbow 80 67 Right Ulnar (ADM) Motor Wrist 2.8 10.1 Bel Elbow 6.6 9.6 Bel Elbow-Wrist 215 57 Abv Elbow 8.2 9.2 Abv Elbow-Bel Elbow 80 50 Left Ulnar-Inching (ADM) Motor Wrist 2.9 9.2 Elb-6 6.4 8.6 Elb-5 6.7 8.5 Elb-5-Elb-6 20 67 Elb-4 7.2 8.5 Elb-4-Elb-5 20 40 Elb-3 7.8 8.4 Elb-3-Elb-4 20 33 Elb-2 8.2 8.2 Elb-2-Elb-3 20 50 Right Ulnar-Inching (ADM) Motor Wrist 2.8 10.1 Elb-6 6.6 9.4 Elb-5 7.2 9.4 Elb-5-Elb-6 20 33 Elb-4 7.8 9.4 Elb-4-Elb-5 20 33 Elb-3 8.1 9.4 Elb-3-Elb-4 20 67 Elb-2 8.4 9.3 Elb-2-Elb-3 20 67 Sensory Nerve Results ? Latency (Peak) Amplitude (P-P) Segment Distance CV Comment Site (ms) (?V) (cm) (m/s) Left Median DigIII Sensory Wrist-Dig III 3.4 32 Wrist-Dig III 140 41 Right Median DigIII Sensory Wrist-Dig III 3.7 22 Wrist-Dig III 140 38 Left Median-Ulnar Palmar Sensory ? Median Palm-Wrist 1.90 62 Palm-Wrist 80 42 ? Ulnar Palm-Wrist 1.78 16 Palm-Wrist 80 45 Right Median-Ulnar Palmar Sensory ? Median Palm-Wrist 2.2 36 Palm-Wrist 80 36 ? Ulnar Palm-Wrist 1.78 5 Palm-Wrist 80 45 Left Radial Sensory Forearm-Wrist 1.83 29 Forearm-Wrist 100 55 Right Radial Sensory Forearm-Wrist 1.80 27 Forearm-Wrist 100 56 Left Ulnar Sensory Wrist-Dig V 3.0 21 Wrist-Dig V 140 47 Right Ulnar Sensory Wrist-Dig V 3.2 22 Wrist-Dig V 140 44 Electromyography ?Side Muscle Nerve Ins Act Fibs Psw Amp Dur Recrt Comment Right Deltoid Axillary Nml Nml Nml Nml Nml Nml Right Biceps Musculocut Nml Nml Nml Nml Nml Nml Right Triceps Radial Incr Nml Nml Incr >12ms +1 Right Ext Digitorum Radial (Post Int) Nml Nml Nml Nml Nml Nml Right ExtCarUln Radial (Post Int) Nml Nml Nml Nml Nml Nml Right Ext Indicis Radial (Post Int) Nml Nml Nml Nml Nml Nml Right FlexPolLong Median (Ant Int) Nml Nml Nml Nml Nml Nml Right 1stDorInt Ulnar Nml Nml Nml Nml Nml Nml Right Abd Poll Brev Median Nml Nml Nml Nml Nml Nml Right FlexDigProf Ulnar Nml Nml Nml Nml Nml Nml Right FlexCarRad Median Nml Nml Nml Nml Nml Nml Left Deltoid Axillary Nml Nml Nml Nml Nml Nml Left Biceps Musculocut Nml Nml Nml Nml Nml Nml Left Triceps Radial Nml Nml Nml Nml Nml Nml Left Ext Digitorum Radial (Post Int) Nml Nml Nml Nml Nml Nml Left ExtCarUln Radial (Post Int) Nml Nml Nml Nml Nml Nml Left Ext Indicis Radial (Post Int) Nml Nml Nml Nml Nml Nml Left FlexPolLong Median (Ant Int) Nml Nml Nml Nml Nml Nml Left 1stDorInt Ulnar Nml Nml Nml Nml Nml Nml Left Abd Poll Brev Median Nml Nml Nml Nml Nml Nml Left FlexDigProf Ulnar Nml Nml Nml Nml Nml Nml Left FlexCarRad Median Nml Nml Nml Nml Nml Nml Right BrachioRad Radial Nml Nml Nml Nml Nml Nml MTDD
== END 2024-11-30 12:51 | disposition home or self-care (01) ==
PROVIDERS: Visit Provider Specialist
DX: G56.03 Carpal tunnel syndrome, bilateral upper limbs (principal)
CPT/HCPCS: 95886; 95913